=== PATIENT | female | born 1990 | race Caucasian/White ===

== ENCOUNTER 2022-08-14 05:51 | Inpatient (IN) ==
[2022-08-14] MEDS ORDERED: TRANEXAMIC ACID 1,000 MG in SODIUM CHLORIDE 0.9% 100 ML IV PRN (06:01)
[2022-08-14] MEDS ORDERED: LACTATED RINGERS 250 ML IV ONE (06:01)
[2022-08-14] MEDS ORDERED: miSOPROStoL 200 MCG TABLET RECTAL PRN (06:01)
[2022-08-14] MEDS ORDERED: CARBOPROST TROMETHAMINE 250 MCG/ML AMP IM PRN (06:01)
[2022-08-14] MEDS ORDERED: OXYTOCIN/LR 20 UNIT/1,000 ML BAG IV ONE ×3 (06:01→16:21)
[2022-08-14] MEDS ORDERED: ONDANSETRON 4 MG/2 ML VIAL IV PRN (06:01)
[2022-08-14] MEDS ORDERED: LACTATED RINGERS 500 ML IV PRN (06:01)
[2022-08-14] MEDS ORDERED: METHYLERGONOVINE 0.2 MG/1 ML AMP IM PRN (06:01)
[2022-08-14 06:45] LABS: Basophils # 0.1 10*3/uL (0.0-0.2); Basophils % 0.4 % (0.0-0.8); Eosinophils # 0.1 10*3/uL (0.0-0.87); Eosinophils % 0.6 % (0.00-10.9); Hematocrit 27.6 VOL% (35.7-47.0); Immature Granulocytes % 0.9 %; Immature Granulocytes Absolute 0.14 #; Lymphocytes # 3.8 10*3/uL (1.4-4.0); Lymphocytes % 23.6 % (21.3-54.2); Mean Corpuscular HGB Conc 32.6 GM/DL (32-36); Mean Corpuscular Volume 97.2 FL (87-102); Mean Platelet Volume 10.2 FL (9.6-12.0); Monocytes # 1.1 10*3/uL (0.11-0.8); Monocytes % 6.7 % (1.7-12.7); Neutrophils % 67.8 % (38.7-73.9); Platelet Count 402 T/CUMM (130-400); Red Blood Count 2.84 MC/CUMM (3.8-5.5); White Blood Count 15.9 T/CUMM (4-12)
[2022-08-14] MEDS: LACTATED RINGERS 1,000 ML IV SCH (06:58)
[2022-08-14] MEDS ORDERED: OXYTOCIN/LR 20 UNIT/1,000 ML BAG IV SCH (07:00)
[2022-08-14 07:05] LABS: Albumin 3.1 G/DL (3.4-5.0); Anisocytosis 1+; Bilirubin,Total 0.4 MG/DL (0.20-1.00); Calcium 8.3 MG/DL (8.5-10.1); Osmolality,Calculated 272.7 MOS/KG (273-304); Platelet Estimate Normal; Potassium 3.9 MMOL/L (3.5-5.1); Total Protein 6.9 G/DL (6.4-8.2)
[2022-08-14 07:06] LABS: Macrocytosis Slight
[2022-08-14] MEDS ORDERED: diphenhydrAMINE 50 MG/1 ML VIAL IV PRN ×2 (09:05)
[2022-08-14] MEDS ORDERED: hydrOXYzine HCL 25 MG/1 ML VIAL IM PRN (09:05)
[2022-08-14] MEDS ORDERED: NALOXONE 0.4 MG/ML VIAL IV PRN (09:05)
[2022-08-14] MEDS ORDERED: ePHEDrine 50 MG/ML VIAL IV PRN (09:05)
[2022-08-14] MEDS ORDERED: PROMETHAZINE 25 MG/1 ML VIAL IM ONE (09:05)
[2022-08-14] MEDS ORDERED: CITRIC ACID/SODIUM CITRATE 30 ML UDCUP PO ONE (09:07)
[2022-08-14] MEDS ORDERED: LACTATED RINGERS 1,000 ML IV ONE (09:07)
[2022-08-14] MEDS ORDERED: FAMOTIDINE 20 MG/2 ML VIAL IV ONE (09:07)
[2022-08-14] MEDS ORDERED: LACTATED RINGERS 1,000 ML IV SCH (09:30)
[2022-08-14] MEDS ORDERED: fentaNYL 2 MCG/ROPIV 0.2% EPID 100 ML EPIDURAL SCH (09:30)
[2022-08-14 11:32] LABS: RBC,Urine 1 /HPF (0-4)
[2022-08-14 11:34] LABS: Urine Appearance Clear (Clear); Urine Color Yellow (Yellow); Urine pH 7.5 (4.5-8.0)
[2022-08-14 11:35] LABS: Bilirubin,Urine Negative (Negative); Blood, Urine Trace mg/dL (Negative); Glucose,Urine (UA) Negative (Negative); Ketones,Urine Negative (Negative); Nitrite,Urine Negative (Negative); Protein,Urine Negative (Negative); Urine Specific Gravity 1.015 (1.001-1.035); Urine Urobilinogen 0.2 eU/dL (<2.0)
[2022-08-14] MEDS ORDERED: ROPIVACAINE 0.5% 30 ML VIAL ONE (13:28)
[2022-08-14] MEDS ORDERED: fentaNYL 100 MCG/2 ML VIAL ONE (13:29)
[2022-08-14] MEDS ORDERED: miSOPROStoL 200 MCG TABLET ONE (14:16)
[2022-08-14] MEDS ORDERED: TRANEXAMIC ACID 1,000 MG/10 ML VIAL ONE (14:16)
[2022-08-14] MEDS ORDERED: METHYLERGONOVINE 0.2 MG/1 ML AMP ONE (14:17)
[2022-08-14] MEDS ORDERED: CARBOPROST TROMETHAMINE 250 MCG/ML AMP IM ONE (14:17)
[2022-08-14] MEDS ORDERED: SODIUM CHLORIDE 0.9% 0 ML IV ONE (14:17)
[2022-08-14 15:01] LABS: Cord Venous Blood HCO3 24.2 MMOL/L; Cord Venous Blood PCO2 46.8 MMHG; Cord Venous Blood PO2 30.1
[2022-08-14] MEDS ORDERED: BENZOCAINE 20%/MENTHOL 0.5% SPRAY 56 GM CAN TOP PRN (16:21)
[2022-08-14] MEDS ORDERED: oxyCODONE/ACETAMINOPHEN 5-325 MG TABLET PO PRN (16:21)
[2022-08-14] MEDS ORDERED: RHO(D) IMMUNE GLOBULIN 300 MCG SYRINGE IM ONE (16:21)
[2022-08-14] MEDS ORDERED: DIPH/TET/ACEL PERT BOOSTER VACCINE 0.5 ML VIAL IM ONE (16:21)
[2022-08-14] MEDS ORDERED: BISACODYL 10 MG SUPP RECTAL PRN (16:21)
[2022-08-14] MEDS ORDERED: ACETAMINOPHEN 325 MG TABLET PO PRN (16:21)
[2022-08-14] MEDS ORDERED: MEASLES/MUMPS/RUBELLA VACCINE 0.5 ML VIAL SUBCUT ONE (16:21)
[2022-08-14] MEDS ORDERED: LANOLIN 50% CREAM 0.3 OZ TUBE TOP PRN (16:21)
[2022-08-14] MEDS ORDERED: HYDROCORTISONE 2.5% RECTAL CREAM 30 GM TUBE TOP PRN (16:21)
[2022-08-14] MEDS ORDERED: WITCH HAZEL PADS 100/JAR TOP PRN (16:21)
[2022-08-14] MEDS: IBUPROFEN 800 MG TABLET PO PRN (16:33)
[2022-08-14] MEDS: DOCUSATE SODIUM 100 MG CAPSULE PO SCH (21:22)
[2022-08-15 04:28] LABS: Basophils # 0.1 10*3/uL (0.0-0.2); Basophils % 0.4 % (0.0-0.8); Eosinophils # 0.1 10*3/uL (0.0-0.87); Eosinophils % 0.6 % (0.00-10.9); Hematocrit 30.7 VOL% (35.7-47.0); Hemoglobin 9.9 GM/DL (12.0-16.0); Immature Granulocytes % 0.7 %; Immature Granulocytes Absolute 0.11 #; Lymphocytes # 2.8 10*3/uL (1.4-4.0); Lymphocytes % 17.9 % (21.3-54.2); Mean Corpuscular HGB Conc 32.2 GM/DL (32-36); Mean Corpuscular Volume 98.1 FL (87-102); Mean Platelet Volume 9.9 FL (9.6-12.0); Monocytes # 0.8 10*3/uL (0.11-0.8); Monocytes % 5.3 % (1.7-12.7); Neutrophils % 75.1 % (38.7-73.9); Platelet Count 261 T/CUMM (130-400); Red Blood Count 3.13 MC/CUMM (3.8-5.5); White Blood Count 15.5 T/CUMM (4-12)
[2022-08-15] MEDS: oxyCODONE/ACETAMINOPHEN 5-325 MG TABLET PO PRN ×2 (04:38→19:19)
[2022-08-15] MEDS: IBUPROFEN 800 MG TABLET PO PRN ×2 (08:38→16:30)
[2022-08-15] MEDS: DOCUSATE SODIUM 100 MG CAPSULE PO SCH ×2 (08:38→21:06)
[2022-08-15] MEDS: LACTATED RINGERS 1,000 ML IV SCH (10:45)
[2022-08-16] MEDS: oxyCODONE/ACETAMINOPHEN 5-325 MG TABLET PO PRN (05:58)
[2022-08-16] MEDS: IBUPROFEN 800 MG TABLET PO PRN (05:59)
[2022-08-16 07:44] VITALS: BP 104/58
[2022-08-16] MEDS: DOCUSATE SODIUM 100 MG CAPSULE PO SCH (08:44)
== END 2022-08-16 10:35 | disposition home or self-care (01) | DRG 560 ==
LOC: N.LD 05:51 → N.OB 16:15
PROVIDERS: ADMIT Obstetrics & Gynecology; ATTEND Obstetrics & Gynecology